=== PATIENT | female | born 1995 | race African-American/Black ===

== ENCOUNTER → 2019-06-17 | Outpatient (REF) | payer OTHER | LOC: M SFHCLERA 19:04 | PROVIDERS: ATTEND Physician Assistant | DX: R50.9 Fever, unspecified (principal); R31.9 Hematuria, unspecified ==

== ENCOUNTER → 2019-06-17 | Outpatient (CLI) | payer OTHER ==
--- NOTE | 2019-06-17 18:59 | REP ---
CHEST: Two views. There is no evidence of acute infiltrate. No pleural effusion is seen. The heart is normal in size. The mediastinal silhouette is unremarkable. The visualized osseous structures are intact. IMPRESSION: No acute pulmonary disease. Electronically Signed by Niels Waller MD 06/19/2019 04:35 P
== END ==
LOC: M LRY 18:25
PROVIDERS: ATTEND Physician Assistant
DX: R50.9 Fever, unspecified (principal); R05 Cough; R31.9 Hematuria, unspecified
CPT/HCPCS: 71046; 81002; 81025; 86308; 87086; 87804; 87880; G0463